=== PATIENT | female | born 1995 | race Caucasian/White ===

== ENCOUNTER 2016-09-01 13:22 | Emergency (ER) | payer MEDICAID ==
[2016-09-01 13:31] VITALS: BP 121/67
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
[2016-09-01] MEDS ORDERED: MOTRIN PO ONE (17:38)
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
== END 2016-09-01 18:11 | disposition home or self-care (01) ==
LOC: ED 13:22
DX: S13.4XXA Sprain of ligaments of cervical spine, initial encounter (principal); S39.012A Strain of muscle, fascia and tendon of lower back, initial encounter; R51 Headache; F17.210 Nicotine dependence, cigarettes, uncomplicated; V89.2XXA Person injured in unspecified motor-vehicle accident, traffic, initial encounter; Y93.89 Activity, other specified; Y92.89 Other specified places as the place of occurrence of the external cause; Y99.8 Other external cause status
CPT/HCPCS: 72125; 99283

== ENCOUNTER 2017-03-07 17:15 | Emergency (ER) | payer MEDICAID ==
--- NOTE | 2017-03-07 21:46 | Emergency Department Report ---
ED ENT HPI - General Chief complaint: Sore Throat Stated complaint: SORE THROAT Time Seen by Provider: 03/07/17 21:25 Source: patient Mode of arrival: Ambulatory Limitations: No Limitations - History of Present Illness Initial comments: 21-year-old female past medical history none presents with 2 days of sore throat. No trismus and no drooling no stridor noted on exam. Patient also complaining of body aches. Patient is awake alert and oriented 3 not appear to be in acute distress. MD complaint: sore throat Onset/Timin -: days(s) Location: throat Severity: mild Quality: aching Consistency: constant Improves with: none Worsens with: swallowing Associated Symptoms: pain with swallowing, sore throat - Related Data Previous Rx's Medication Instructions Recorded Last Taken Type Cyclobenzaprine [Flexeril] 10 mg PO TID PRN #15 tablet 09/01/16 Unknown Rx Ibuprofen [Motrin 600 MG tab] 600 mg PO Q8H PRN #15 tablet 09/01/16 Unknown Rx Dextromethorphan/Benzocaine 1 each PO Q4H PRN #1 box 03/07/17 Unknown Rx [Cepacol Sorethroat-Cough Bobbi] Ibuprofen [Motrin] 800 mg PO Q8HR PRN #30 tablet 03/07/17 Unknown Rx Allergies Allergy/AdvReac Type Severity Reaction Status Date / Time latex Allergy Hives Verified 03/07/17 17:17 ED Dental HPI - General Chief complaint: Sore Throat Stated complaint: SORE THROAT Time Seen by Provider: 03/07/17 21:25 Source: patient Mode of arrival: Ambulatory Limitations: No Limitations - Related Data Previous Rx's Medication Instructions Recorded Last Taken Type Cyclobenzaprine [Flexeril] 10 mg PO TID PRN #15 tablet 09/01/16 Unknown Rx Ibuprofen [Motrin 600 MG tab] 600 mg PO Q8H PRN #15 tablet 09/01/16 Unknown Rx Dextromethorphan/Benzocaine 1 each PO Q4H PRN #1 box 03/07/17 Unknown Rx [Cepacol Sorethroat-Cough Bobbi] Ibuprofen [Motrin] 800 mg PO Q8HR PRN #30 tablet 03/07/17 Unknown Rx Allergies Allergy/AdvReac Type Severity Reaction Status Date / Time latex Allergy Hives Verified 03/07/17 17:17 ED Review of Systems ROS: Stated complaint: SORE THROAT Other details as noted in HPI Constitutional: denies: chills, fever Eyes: denies: eye pain, eye discharge, vision change ENT: throat pain. denies: ear pain Respiratory: denies: cough, shortness of breath, wheezing Cardiovascular: denies: chest pain, palpitations Endocrine: no symptoms reported Gastrointestinal: denies: abdominal pain, nausea, diarrhea Genitourinary: denies: urgency, dysuria, discharge Musculoskeletal: denies: back pain, joint swelling, arthralgia Skin: denies: rash, lesions Neurological: denies: headache, weakness, paresthesias Psychiatric: denies: anxiety, depression Hematological/Lymphatic: denies: easy bleeding, easy bruising ED Past Medical Hx - Past Medical History Previous Medical History?: No - Surgical History Past Surgical History?: No - Social History Smoking Status: Never Smoker Substance Use Type: Alcohol - Medications Home Medications: Home Medications Medication Instructions Recorded Confirmed Last Taken Type Cyclobenzaprine [Flexeril] 10 mg PO TID PRN #15 tablet 09/01/16 Unknown Rx Ibuprofen [Motrin 600 MG tab] 600 mg PO Q8H PRN #15 tablet 09/01/16 Unknown Rx Dextromethorphan/Benzocaine 1 each PO Q4H PRN #1 box 03/07/17 Unknown Rx [Cepacol Sorethroat-Cough Bobbi] Ibuprofen [Motrin] 800 mg PO Q8HR PRN #30 tablet 03/07/17 Unknown Rx ED Physical Exam - General Limitations: No Limitations General appearance: alert, in no apparent distress - Head Head exam: Present: atraumatic, normocephalic - Eye Eye exam: Present: normal appearance, PERRL, EOMI - ENT ENT exam: Present: mucous membranes moist - Neck Neck exam: Present: normal inspection, lymphadenopathy (anteriro cervical adenopathy) - Respiratory Respiratory exam: Present: normal lung sounds bilaterally. Absent: respiratory distress - Cardiovascular Cardiovascular Exam: Present: regular rate, normal rhythm. Absent: systolic murmur, diastolic murmur, rubs, gallop - GI/Abdominal GI/Abdominal exam: Present: soft, normal bowel sounds - Extremities Exam Extremities exam: Present: normal inspection - Back Exam Back exam: Present: normal inspection - Neurological Exam Neurological exam: Present: alert, oriented X3, CN II-XII intact, normal gait - Psychiatric Psychiatric exam: Present: normal affect, normal mood - Skin Skin exam: Present: warm, dry, intact, normal color. Absent: rash ED Course Vital Signs 03/07/17 17:17 Temperature 98.3 F Pulse Rate 102 H Respiratory 18 Rate Blood Pressure 117/73 O2 Sat by Pulse 97 Oximetry ED Medical Decision Making - Medical Decision Making A/P: Strep throat 1-Motrin when necessary, throat lozenges when necessary. Patient able to swallow fluids without difficulty 2-empiric treatment with Bicillin 3-follow up with primary care doctor Critical care attestation.: If time is entered above; I have spent that time in minutes in the direct care of this critically ill patient, excluding procedure time. ED Disposition Clinical Impression: Strep throat Disposition: TO HOME OR SELFCARE Is pt being admited?: No Does the pt Need Aspirin: No Condition: Stable Instructions: Strep Throat (ED) Prescriptions: Dextromethorphan/Benzocaine [Cepacol Sorethroat-Cough Bobbi] 1 each PO Q4H PRN #1 box PRN Reason: Sore Throat Ibuprofen [Motrin] 800 mg PO Q8HR PRN #30 tablet PRN Reason: Pain Referrals: [facility] [Outside] - 3-5 Days [facility] [Outside] - 3-5 Days Forms: Work/School Release Form(ED) Time of Disposition: 22:05
[2017-03-07] MEDS ORDERED: DECADRON IM ONE (22:01)
[2017-03-07] MEDS ORDERED: BICILLIN L-A IM ONE (22:01)
[2017-03-08 00:55] VITALS: BP 122/72
== END 2017-03-07 22:35 | disposition home or self-care (01) ==
LOC: ED 17:15
DX: J02.0 Streptococcal pharyngitis (principal); Z91.040 Latex allergy status
CPT/HCPCS: 87430; 96372; 99282; J0561; J1100

== ENCOUNTER 2017-09-05 10:25 | Emergency (ER) | payer MEDICAID ==
[2017-09-05 10:51] VITALS: BP 127/66
[2017-09-05 12:24] LABS: Bilirubin,Urine NEG (Negative); Blood,Urine NEG (Negative); Color,Urine Yellow (Yellow); Mucus,Urine 3+ /HPF; Protein,Urine <15 mg/dL mg/dL (Negative); Urobilinogen,Urine < 2.0 mg/dL (<2.0)
[2017-09-05 12:27] LABS: HCG Qualitative,Urine Negative (Negative)
--- NOTE | 2017-09-05 12:29 | Emergency Department Report ---
Blank Doc - Documentation Documentation: Patient is a 22-year-old female is presenting with lower abdominal crampy pain is 5 out of 10. Patient states that she also has a vaginal discharge as well. Patient denies dysuria vaginal bleeding nausea vomiting diarrhea at this time. Patient states she has had no fever. Patient was moved to the treatment room for pelvic exam urinalysis test pending.
--- NOTE | 2017-09-05 13:23 | Emergency Department Report ---
ED Female HPI - General Chief complaint: Abdominal Pain Stated complaint: ABDOMINAL PAIN Time Seen by Provider: 09/05/17 12:26 Source: patient Mode of arrival: Ambulatory Limitations: No Limitations - History of Present Illness Initial comments: Patient is a 22-year-old female is presenting with lower abdominal crampy pain is 5 out of 10. Patient states that she also has a vaginal discharge as well. Patient denies dysuria vaginal bleeding nausea vomiting diarrhea at this time. Patient states she has had no fever. - Related Data Previous Rx's Medication Instructions Recorded Last Taken Type Cyclobenzaprine [Flexeril] 10 mg PO TID PRN #15 tablet 09/01/16 Unknown Rx Ibuprofen [Motrin 600 MG tab] 600 mg PO Q8H PRN #15 tablet 09/01/16 Unknown Rx Dextromethorphan/Benzocaine 1 each PO Q4H PRN #1 box 03/07/17 Unknown Rx [Cepacol Sorethroat-Cough Bobbi] Ibuprofen [Motrin] 800 mg PO Q8HR PRN #30 tablet 03/07/17 Unknown Rx Nitrofurantoin Monohyd/M-Cryst 100 mg PO BID #14 capsule 09/05/17 Unknown Rx [Macrobid 100 mg Capsule] Allergies Allergy/AdvReac Type Severity Reaction Status Date / Time latex Allergy Hives Verified 09/05/17 10:49 ED Review of Systems ROS: Stated complaint: ABDOMINAL PAIN Other details as noted in HPI Comment: All other systems reviewed and negative ED Past Medical Hx - Past Medical History Previous Medical History?: No - Surgical History Past Surgical History?: No - Social History Smoking Status: Never Smoker Substance Use Type: Alcohol - Medications Home Medications: Home Medications Medication Instructions Recorded Confirmed Last Taken Type Cyclobenzaprine [Flexeril] 10 mg PO TID PRN #15 tablet 09/01/16 Unknown Rx Ibuprofen [Motrin 600 MG tab] 600 mg PO Q8H PRN #15 tablet 09/01/16 Unknown Rx Dextromethorphan/Benzocaine 1 each PO Q4H PRN #1 box 03/07/17 Unknown Rx [Cepacol Sorethroat-Cough Bobbi] Ibuprofen [Motrin] 800 mg PO Q8HR PRN #30 tablet 03/07/17 Unknown Rx Nitrofurantoin Monohyd/M-Cryst 100 mg PO BID #14 capsule 09/05/17 Unknown Rx [Macrobid 100 mg Capsule] ED Physical Exam - General Limitations: No Limitations General appearance: alert, in no apparent distress - Head Head exam: Present: atraumatic, normocephalic - Eye Eye exam: Present: normal appearance - ENT ENT exam: Present: mucous membranes moist - Neck Neck exam: Present: normal inspection - Respiratory Respiratory exam: Present: normal lung sounds bilaterally. Absent: respiratory distress - Cardiovascular Cardiovascular Exam: Present: regular rate, normal rhythm. Absent: systolic murmur, diastolic murmur, rubs, gallop - GI/Abdominal GI/Abdominal exam: Present: soft, normal bowel sounds. Absent: distended, tenderness, guarding, rebound - Speculum exam: Present: vaginal bleeding. Absent: vaginal discharge - Extremities Exam Extremities exam: Present: normal inspection - Back Exam Back exam: Present: normal inspection - Neurological Exam Neurological exam: Present: alert, oriented X3 - Psychiatric Psychiatric exam: Present: normal affect, normal mood - Skin Skin exam: Present: warm, dry, intact, normal color. Absent: rash ED Course Vital Signs 09/05/17 10:49 Temperature 98.9 F Pulse Rate 67 Respiratory 16 Rate Blood Pressure 127/66 O2 Sat by Pulse 97 Oximetry ED Medical Decision Making - Medical Decision Making On physical exam the patient is noted to have some mild bleeding. There is no discharge present. Patient's wet prep was also within normal limits. Patient be discharged home with follow-up with MOTION PICTURE COMMENTATOR Critical care attestation.: If time is entered above; I have spent that time in minutes in the direct care of this critically ill patient, excluding procedure time. ED Disposition Clinical Impression: DUB (dysfunctional uterine bleeding), UTI (urinary tract infection) Disposition: DC-01 TO HOME OR SELFCARE Is pt being admited?: No Does the pt Need Aspirin: No Condition: Stable Instructions: Urinary Tract Infection in Women (ED) Additional Instructions: Please follow-up with your ELECTRON GUN INSPECTOR
== END 2017-09-05 13:42 | disposition home or self-care (01) ==
LOC: ED 10:25
DX: N93.8 Other specified abnormal uterine and vaginal bleeding (principal); N39.0 Urinary tract infection, site not specified; Z91.040 Latex allergy status
CPT/HCPCS: 81001; 81025; 87210; 87591; 99283